=== PATIENT | female | born 1985 | race Caucasian/White ===

== ENCOUNTER 2020-12-23 17:38 | Emergency (ER) | payer MEDICAID, SELFPAY ==
[2020-12-23 18:09] VITALS: BP 127/83; PULSE 72; RESP 16; TEMP 36.6; O2SAT 100; BMI 23.8
--- NOTE | 2020-12-23 18:51 | ED.DENTAL ---
HPI - Dental/Oral General Chief complaint: Dental/Oral Stated complaint: dental pain Time Seen by Provider: 12/23/20 18:26 Source: patient Mode of arrival: ambulatory History of Present Illness HPI Narrative: 35-year-old female with no significant past medical history presenting to the ED complaining of right upper dental pain x2 weeks worsening over the past 2 days. States unable to sleep secondary to pain. Denies known injury, trauma, fever, chills, drainage from area, known dental infection/recent dental procedure MD Complaint: tooth pain Related Data Previous Rx's Medication Instructions Recorded hydrocodone-acetaminophen 1 tab PO Q8H PRN 3 Days #7 tab 12/23/20 Allergies Allergy/AdvReac Type Severity Reaction Status Date / Time No Known Allergies Allergy Verified 12/23/20 18:12 Review of Systems Review of Systems: Constitutional: No Fever, No Chills ENT/Mouth: No Ear Pain, + dental pain, No Sinus Pain, No sore throat, No Rhinorrhea, No Swallowing Difficulty Cardiovascular: No Chest Pain, No SOB Respiratory: No Cough, No Wheezing Gastrointestinal: No Nausea, No Vomiting Skin: No Skin Lesions, No rash Yes all other systems are reviewed and are negative [facility] Past Medical History Attestation statement: The following information was validated with the patient. Social History Social History Alcohol intake: never Smoked in Last 30 Days: No Use of substances other than those prescribed or required for medical reasons: No Any prior treatment program specific to substance use: No Advance Directives: No Advance Directives Information Provided: Yes Physical Exam Vital Signs: Vital Signs: Last Vital Signs Temp 97.8 F 12/23/20 18:09 Pulse 72 12/23/20 18:09 Resp 16 12/23/20 18:09 BP 127/83 12/23/20 18:09 Pulse Ox 100 12/23/20 18:09 Body Mass Index 23.8 Const: General: cooperative, healthy appearing, comfortable and no acute distress Orientation/consciousness: patient oriented x3 Limitations: no limitations HENMT: Other: Right upper 3rd tooth mild tenderness. No surrounding erythema, no inflammation, no fluctuance or induration Head: Yes normal to inspection Ears: hearing grossly normal bilaterally and TM abnormal obstructed by cerumen bilateral General nose exam: Normal external nose present Face and sinus: Yes normal facial exam Mouth: Normal oral and palatal mucosa present, moist mucous membranes and no drooling Throat: Yes posterior oropharynx normal, Yes tonsils normal, Yes uvula midline and No peritonsillar mass Eyes: General: appearance normal, both eyes and all related structures EOM: EOMs intact bilaterally Neck: Neck: Yes normal visual inspection and Yes no meningeal signs Resp: Effort & Inspection: normal respiratory effort Skin: Rashes: no rashes Wounds: no wounds Neuro: General: patient oriented x3 and no meningeal signs Gait exam (Neuro): Normal gait present Extrem: General: Yes normal to inspection MDM - Dental/Oral MDM Narrative Medical decision making narrative: 35-year-old female with no significant past medical history presenting to the ED complaining of right upper dental pain x2 weeks worsening over the past 2 days. On exam VSS, NAD/well-appearing, physical exam as above. No evidence of dental abscess/infection at this time. Discussed with patient she needs close follow-up with dentist. States she has an appointment in January, was given list of dental clinics to attempt appointment sooner Worrisome signs and symptoms and strict return precautions discussed. She verbalized understanding feel safe for discharge home Discharge Plan Discharge Clinical Impression: Toothache Patient Disposition: Home, Self-Care Instructions: Toothache (ED) Additional Instructions: You need to see a dentist as soon as possible. Your tooth does not look infected at this time, however if it becomes red, is swollen, fever, there was pus drainage return to the ED. [facility] as an opiate pain medication, take only when pain is severe for the next 3 days. Continue taking other [id number] medications Necesita ermelinda a un dentista lo antes posible. Coyle diente no parece infectado en tete momento, sin embargo, si se enrojece, se hincha, tiene fiebre, hubo drenaje de pus y regresar? al servicio de urgencias. 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 Contin?e tomando otros medicamentos de venta clint Prescriptions: New hydrocodone-acetaminophen 5-325 mg tablet 1 tab PO Q8H PRN (Reason: pain, severe) 3 Days Qty: 7 RF: 0 Print Language: Mongolian
[2020-12-23] MEDS: oxyCODONE HCl Immed Release 5 MG TABLET PO (19:04)
== END 2020-12-23 19:29 | disposition home or self-care (01) ==
PROVIDERS: Emergency Provider Emergency Medicine
DX: K08.89 Other specified disorders of teeth and supporting structures (principal)
CPT/HCPCS: 99283; 99284

== ENCOUNTER 2021-12-02 09:59 | Outpatient (REF) | payer MEDICAID, SELFPAY ==
[2021-12-02 10:25] LABS: Binax Internal Control QC Valid; Binax Now Covid-19 Ag Negative (Negative)
== END 2021-12-02 10:00 | disposition home or self-care (01) ==
LOC: HO.HMGCLDS 09:59
PROVIDERS: Visit Provider Internal Medicine
DX: Z13.89 Encounter for screening for other disorder (principal)